=== PATIENT | male | born 1950 | race Caucasian/White ===

== ENCOUNTER 2018-06-10 08:22 | Emergency (ER) | payer OTHER ==
[~2018-06-10] VITALS: Ht 175.3 cm; Wt 57.2 kg
[2018-06-10 08:33] VITALS: Ht 175.3 cm; Wt 57.2 kg
[2018-06-10 09:17] VITALS: BP 165/90
== END 2018-06-10 09:18 | disposition home or self-care (01) ==
LOC: ED 08:22
DX: G89.29 Other chronic pain (principal); M54.5 Low back pain; F17.200 Nicotine dependence, unspecified, uncomplicated
CPT/HCPCS: J2270; Q0162